=== PATIENT | female | born 1965 | race Caucasian/White ===

== ENCOUNTER 2022-12-18 06:01 | Inpatient (IN) | payer BC, SELFPAY ==
[2022-12-18] VITALS (7 sets, daily range): BP systolic 123–155; BP diastolic 55–79; PULSE 72–84; RESP 15–18; TEMP 36.9–37.5; O2SAT 96–100; BMI 25.1
--- NOTE | ~2022-12-18 | CT_ITS ---
EXAMINATION: CT abdomen pelvis w con DATE: 12/18/2022 08:17 INDICATION: Generalized abdominal pain TECHNIQUE: Computed tomography (CT) of the abdomen and pelvis was performed with 100 mL Omnipaque-350 intravenous contrast. Automated exposure control and iterative reconstruction technique were employe d. The dose-length product was 398.72 mGy-cm. COMPARISON: None FINDINGS: Mild bibasilar atelectasis. Heart size is normal. No pericardial or pleural effusion. Small sliding-t ype hiatal hernia. Liver, gallbladder, spleen and bilateral adrenal glands are normal. There is mild dilation of the main pancreatic duct at the body of the pancreas where it measures 3.8 mm in maximal diameter. The pancreas otherwise normal. No evident masses, stones or peripancreatic stranding. Air-f luid level within a 4 cm duodenal diverticulum situated posterior to the second portion of the duoden um. Developmental variant horseshoe kidney with fusion across the midline of the lower poles of the k idneys. There appears to be some urothelial enhancement at the bilateral renal collecting systems and ureters which could be seen with ascending urinary tract infection. Mild diffuse bladder wall thicke tu with smooth surface. Uterus and bilateral adnexa are unremarkable. Moderate scattered diverticul osis with descending and sigmoid colon predominance without adjacent from trace stranding to suggest acute appendicitis. Appendix is normal. No bowel obstruction. Small fat-containing umbilical and left inguinal hernias. No free intraperitoneal gas or fluid. No pathologically enlarged abdominal or pelv ic lymphadenopathy. Mild S-shaped scoliosis of the lumbar and lower thoracic spine with mild spondylo sis. IMPRESSION: 1. Developmental variant horseshoe kidney with urothelial enhancement of the bilateral renal collecti ng systems and ureters as well as mild wall thickening of the bladder which could be seen with cystit is and ascending urinary tract infection. Correlate with urinalysis. 2. Mild dilation of the main pancreatic duct at the body of the otherwise normal-appearing pancreas w hich is of indeterminate etiology or significance. Reviewed, dictated and finalized at location A. IMPRESSION: 1. Developmental variant horseshoe kidney with urothelial enhancement of the bi lateral renal collecting systems and ureters as well as mild wall thickening of the bladder which could be seen with cystitis and ascending urinary tract infe ction. Correlate with urinalysis. 2. Mild dilation of the main pancreatic duct at the body of the otherwise isma l-appearing pancreas which is of indeterminate etiology or significance.
[2022-12-18 06:39] LABS: Appearance Urine Turbid (Clear); Color Urine Yellow (Yellow); Glucose Urine UA 3+ mg/dL (Negative); Ketones Urine 2+ mg/dL (Negative); Protein Urine 2+ mg/dL (Negative); Specific Grav Ur 1.017 (1.001-1.035); pH Urine 5.5 (5.0-9.0)
[2022-12-18 06:40] LABS: Bacteria Urine 4+ /hpf; Bilirubin Urine Negative (Negative); Blood Urine 3+ (Negative); Leukocyte Esterase Ur 2+ LEU/UL (Negative); Nitrate Urine Positive (Negative); RBC Urine 51-100 /hpf (0-2); Squamous Epithelial Cell Urine None seen /hpf (Few); Urobilinogen Urine 0.2 mg/dL (<2.0); WBC Urine >100 /hpf
[2022-12-18 06:43] LABS: Add Urine Microscopic? YES
[2022-12-18 06:44] LABS: Alanine Aminotransferase 18 U/L (6-35); Albumin Level 4.7 g/dL (3.5-5.1); Alkaline Phosphatase 80 U/L (38-126); Anion Gap 9 mmol/L (8-16); Aspartate Amino Transferase 22 U/L (14-36); Bilirubin,Total 1.9 mg/dL (0.2-1.3); Blood Urea Nitrogen 18 mg/dL (7-17); Calcium 9.7 mg/dL (8.4-10.2); Carbon Dioxide 30 mmol/L (22-30); Chloride 100 mmol/L (98-107); Estimated CRCL calculation 74 ml/min; Estimated Glomerular Filt Rate > 60; Glucose 221 mg/dL (65-110); Lipase 38 U/L (23-300); Potassium 4.4 mmol/L (3.4-5.0); Sodium 139 mmol/L (137-145)
[2022-12-18 06:50] LABS: Hematocrit 37.7 % (37.0-47.0); Hemoglobin 12.6 g/dL (12.0-15.0); Mean Corpuscular HGB Conc 33.4 g/dl (32-36); Mean Corpuscular Volume 101.6 fl (80-100); Mean Platelet Volume 9.9 fl (7.4-10.4); Platelet Count Result 260 k/mm3 (150-375); Red Blood Count 3.71 M/mm3 (4.2-5.4); Red Cell Distribution Width 12.2 % (11.5-14.5); White Blood Count 17.8 K/mm3 (4.5-10.0)
[2022-12-18 07:22] LABS: Band Neutrophils Percent 5 % (0-6); Eosinophils Absolute Manual 0.17 K/mm3 (0.02-0.5); Eosinophils Percent Manual 1 % (0-4); Lymphocytes Absolute Manual 1.24 K/mm3 (1.1-4.5); Monocytes Absolute Manual 0.89 K/mm3 (0.1-0.90); Monocytes Percent Manual 5 % (3-9); Neutrophils Absolute Manual 15.48 K/mm3 (1.7-7.2); Neutrophils Percent Manual 82 % (46-73); Platelet Estimate Adequate (Adequate); Schistocytes None Seen (NORMAL); Total Cells Counted 100
--- NOTE | 2022-12-18 07:28 | ED.ABDPAIN ---
HPI - Abdominal Pain General Chief Complaint: Abdominal Pain Stated Complaint: Adominal pain, blockage in bladder and vag area Time Seen by Provider: 12/18/22 07:28 Source: patient and family Mode of arrival: ambulatory Limitations: no limitations History of Present Illness HPI narrative: 57 years old white female came to the emergency room by private car complaining of pressure kind of pain across lower abdomen bilaterally going for a month or 2. Associated with nausea and intermittent vomiting. Patient reported if sustained up for long hours or urinating feels like something has fallen out does not know from the vagina or the rectum. She try to push that something back when she is urinating or defecating Related Data Home Medications Medication Instructions Recorded Confirmed insulin aspart U-100 100 unit/mL subcut 12/18/22 (3 mL) subcutaneous pen (Novolog FlexPen U-100 Insulin aspart) insulin detemir U-100 100 unit/mL unit subcut 12/18/22 (3 mL) subcutaneous pen (Levemir FlexPen) Allergies Allergy/AdvReac Type Severity Reaction Status Date / Time No Known Allergies Allergy Verified 12/18/22 08:00 Review of Systems Review of Systems: All systems reviewed & are unremarkable except as noted in HPI and below PMFSH Family History Family History Father Family history of lung cancer, Onset Age: 65 Patient's father is Social History Social History Smoking status: Never smoker Exam Narrative: General appearance: Well-developed, well-nourished Skin: Normal color Head: Normocephalic, nontraumatic Eyes: Clear conjunctiva ENT: Oropharynx normal, ears normal, nose normal Neck: Supple, nontender Chest and respiratory: Airway patent, no respiratory distress, no accessory muscle use Heart: Regular rate/rhythm Abdomen: Soft, diffuse tenderness lower abdomen, no guarding or rebound no organomegaly, quiet bowel sounds Vascular: Normal peripheral pulses, normal capillary refill. Musculoskeletal: Normal range of motion, nontender back Neurologic: Alert and oriented ?3, SALES SUPPORT CONSULTANT is normal as tested, no gross motor deficit Course Reevaluation(s) Reevaluation #1: Patient still not feeling well, nauseated and vomiting twice in the ED. Date: 12/18/22 Time: 11:50 Vital Signs Vital signs: Vital Signs Temperature 37.0 C 12/18/22 06:10 Pulse Rate 84 12/18/22 06:10 Respiratory Rate 15 12/18/22 06:10 Blood Pressure 130/55 L 12/18/22 06:10 Pulse Oximetry 100 12/18/22 06:10 Oxygen Delivery Room Air 12/18/22 06:10 Temperature 37.0 C 12/18/22 06:10 Pulse Rate 72 12/18/22 10:41 Respiratory Rate 18 12/18/22 10:41 Blood Pressure 155/64 H 12/18/22 10:41 Pulse Oximetry 96 12/18/22 10:41 Oxygen Delivery Room Air 12/18/22 06:10 MDM - Abdominal Pain MDM Narrative Medical decision making narrative: Patient presents with the above complaint Physical examination showed diffuse tenderness across lower abdomen, vaginal exam and rectal exam showed no prolapse. Differential diagnosis include urinary tract infection, uterine prolapse, rectal prolapse, colitis, constipation. Work-up today include CBC, CMP, lipase, urine analysis, CT abdomen pelvis with IV contrast showed WBC of 11.8 with, blood
[2022-12-18] MEDS: ONDANSETRON INJ 4 MG/2 ML VIAL IV PUSH (08:01)
[2022-12-18] MEDS: SODIUM CHLORIDE 0.9% IV 1,000 ML 999 ML IV CONT (08:01)
[2022-12-18] MEDS: HYDROmorphone HCL INJ (*CRX) 1 MG/ML SYR 0.5 MG IV PUSH (08:02)
[2022-12-18] MEDS: ONDANSETRON INJ 4 MG/2 ML VIAL 8 MG IV PUSH (10:55)
[2022-12-18] MEDS: SODIUM CHLORIDE 0.9% IV 1,000 ML 125 ML IV CONT ×2 (11:51→22:53)
[2022-12-18] MEDS: ACETAMINOPHEN 325 MG TABLET 650 MG PO ×2 (13:53→20:34)
--- NOTE | 2022-12-18 13:56 | PC.NURSE ---
This patient, Jesusita Quevedo, was admitted to [facility] Surg Room 314-01 at 1330. Patient/family oriented to hospital policies and general routines including ID bracelet, bed and alarms, visiting hours, pain management, procedures, bathroom and other care routines, personal items, smoking policy, room service/diet, and visiting hours. Information on how to activate the Rapid Response Team has been discussed. Patient/Family are encouraged to report perceived risks to care and to ask questions if they do not understand what they are told or what they should do.
--- NOTE | 2022-12-18 15:19 | PM.IMHP ---
H&P: HPI History of Present Illness Date/Time: 12/18/22 15:19 Chief Complaint: Lower Abdominal Pain Narrative: 57 y/o F w/PMH of DM requiring insulin use presents here with lower abdominal pain and sensation of protruding tissue suspected to be from vagina. Patient presents here with lower abdominal pain for the past 1-2 months, initially patient believed pain was due to recurrent protrusion of tissue from her vaginal area. Patient reports that protrusion occurs with BMs, urination, and long periods of standing. Occurring daily. Abnormality requires patient to manually press prolapse back inside. Describes it as firm, like a baby that is . Patient has been experiencing difficulty with defecation due to this, reports laxative use to induce/ease BM. Last BM today, described as small and hard. Patient denies fever, dysuria, frequency, foul odor, blood in her urine, or flank pain. Now experiencing N/V x1 day. Review of Systems Review of Systems: All systems reviewed & are unremarkable except as noted in HPI and below PMFSH Past Medical History Medical History (Updated 12/19/22 @ 00:14 by Jamila Lew APRN) Diabetes mellitus type 2 in nonobese Ectopic Surgical History Surgical History (Updated 12/19/22 @ 00:12 by Jamila Lew APRN) History of salpingostomy Family History Family History (Updated 12/18/22 @ 13:58 by Shani Franks LPN) Father Family history of lung cancer, Onset Age: 65 Patient's father is Mother Alzheimer disease Social History Social History (Updated 12/18/22 @ 15:41 by Jamila Lew APRN) Social History: Currently lives at home with . 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 Spiritual care concerns: No Meds Home Medications and Allergies Home Medications Medication Instructions Recorded Confirmed Type insulin aspart U-100 100 unit/mL See Rx Instructions .Route .COMPLEX 12/18/22 12/18/22 History (3 mL) subcutaneous pen (Novolog FlexPen U-100 Insulin aspart) insulin detemir U-100 100 unit/mL 26 unit subcut DAILY 12/18/22 12/18/22 History (3 mL) subcutaneous pen (Levemir FlexPen) Allergies Allergy/AdvReac Type Severity Reaction Status Date / Time No Known Allergies Allergy Verified 12/18/22 08:00 Vital Signs Vital Signs - 24 hr 12/18/22 06:10 12/18/22 07:40 12/18/22 10:41 Temperature 98.6 F Pulse Rate 84 77 72 Respiratory Rate 15 18 18 Blood Pressure 130/55 L 148/69 H 155/64 H Pulse Oximetry 100 96 96 Oxygen Delivery Room Air 12/18/22 11:33 12/18/22 11:34 12/18/22 13:49 Temperature 98.4 F Pulse Rate 78 Respiratory Rate 18 Blood Pressure 123/79 132/56 L Pulse Oximetry 97 99 96 Oxygen Delivery Exam Const: General: comfortable and no acute distress HENMT: Mouth: Yes moist mucous membranes Eyes: General: appearance normal, both eyes and all related structures Sclera: sclerae normal Pupils: Equal, round and reactive pupils present EOM: EOMs intact bilaterally Resp: Effort & Inspection: normal respiratory effort Auscultation: clear to auscultation bilaterally Cardio: Rate: regular rate Rhythm: regular rhythm GI: GI Palp: Yes Soft to palpation Auscultation: normal bowel sounds Other: non-tender : Other: tissue protruding from vagina, cylindrica
[2022-12-18 17:12] LABS: Glucose Point of Care 125 mg/dl (65-105)
--- NOTE | 2022-12-18 18:12 | PC.NURSE ---
On 12/18/22, the MEDIA CONSULTANT, Shani Franks, provided care and completed [employer] documentation on this patient. I have reviewed the MEDIA CONSULTANT's documentation and agree with the findings.
[2022-12-18 18:17] LABS: Hemoglobin A1C 6.4 % (<5.7)
[2022-12-18 20:32] LABS: Glucose Point of Care 211 mg/dl (65-105)
[2022-12-18] MEDS: INSULIN ASPART (*BKC) 100 UNITS/ML SUB-Q (20:32)
--- NOTE | 2022-12-19 02:56 | PC.NURSE ---
I reviewed Angie Gaytan's (license pending) charting and agree with all entries for 12-18-22/12-19-22.
[2022-12-19 05:35] VITALS: BP 111/43; PULSE 69; RESP 18; TEMP 36.8; O2SAT 96
--- NOTE | 2022-12-19 07:03 | PM.IMPN ---
Progress Note: A&P Assessment and Plan (1) Pyelonephritis: Code(s): N12 - Tubulo-interstitial nephritis, not specified as acute or chronic Status: Acute Assessment and Plan: Lower abdominal pain for 1-2 months, now with N/V x1 day. No urinary symptoms reported. -UA showed tubrid appearance, 2+ protein, 3+ glucose, 2+ ketones, 3+ blood, 2+ leuk esterase, >100 WBC, 4+ bacteria -UC pending -CT Abd Pelvis Impression 1. 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 Correlate with urinalysis. 2. Mild dilation of the main pancreatic duct at the body of the otherwise normal-appearing pancreas which is of indeterminate etiology or significance. -Blood culture - pending, r/o sepsis -abx initiated in ED - given Ceftriaxone 1G, continued Q24H -TYL PRN for pain/fever -Zofran PRN for nausea, patient endorsed mild nausea with atb administration -rehydration with NS 75 ml/hr (2) Diabetes mellitus type 2 in nonobese: Code(s): E11.9 - Type 2 diabetes mellitus without complications Status: Acute Assessment and Plan: Currently on sliding scale Novolog and Levemir 26 U daily. Levemir last filled in 07/2022. -no A1C on file, ordered and pending -hypoglycemia protocol in place -Moderate Dose Novolog Sliding Scale ordered - TIDWM, HS -hold home Novolog, continue Levemir 26 U Daily -glucose monitoring ACHS (3) Uterine prolapse: Code(s): N81.4 - Uterovaginal prolapse, unspecified Status: Acute Assessment and Plan: Physical assessment revealed smooth tissue with opening, presumed to be os. -GEOLOGICAL SAMPLE TESTER consulted -Fiber supplementation to ease straining -Docusate w/senna ordered Plan Chronic Conditions/Problems - See above, no additional. Diet: Diabetic Consistent Carb DVT Prophylaxis: SCDs, Lovenox 40 Code Status: Full Code Antibiotics: Rocephin Subjective Date/time seen: 12/19/22 07:03 Interval history: HPI obtained from chart, 57 y/o F w/PMH of DM requiring insulin use presents here with lower abdominal pain and sensation of protruding tissue suspected to be from vagina. Patient presents here with lower abdominal pain for the past 1-2 months, initially patient believed pain was due to recurrent protrusion of tissue from her vaginal area. Patient reports that protrusion occurs with BMs, urination, and long periods of standing. Occurring daily. Abnormality requires patient to manually press prolapse back inside. Describes it as firm, like a baby that is . Patient has been experiencing difficulty with defecation due to this, reports laxative use to induce/ease BM. Last BM today, described as small and hard. Patient denies fever, dysuria, frequency, foul odor, blood in her urine, or flank pain. Now experiencing N/V x1 day. 12/19: Patient is seen today resting in bed. No acute events overnight. She is awaiting gang miner consult. I spoke with her about the plan for continued IV antibiotics and IV fluids for her pyelonephritis. We are waiting urine cultures. Today she is not having nausea but she is still having some left lower flank pain. She denies dysuria or frequency. She is able to void spontaneously despite prolapse. Review of Systems Review of Systems: All systems reviewed & are unremarkable except as noted in HPI and below Exam Narrative: General: well appearing, well developed, well nourished, appears stated age. HEENT: normocephalic, atraumatic. Mucous membranes moist. EOMI, PERRLA, bilateral sclera anicteric, no conjunctival injection. Neck supple without JVD, lymphadenopathy, or bruit. Respiratory: clear to auscultation bilaterally. No rales/rhonic/wheezes. Cardiovascular: Regular rate and rhythm, normal S1-S2 upon auscultation. No murmurs, rubs, or clicks. PMI is
[2022-12-19 07:41] LABS: Glucose Point of Care 158 mg/dl (65-105)
[2022-12-19] MEDS: PSYLLIUM POWDER PACKET 1 PACKET PO (08:52)
[2022-12-19] MEDS: ENOXAPARIN 40 MG/0.4 ML SYRINGE SUB-Q (08:52)
[2022-12-19] MEDS: INSULIN GLARGINE (*BKC) 100 UNITS/ML 26 UNITS SUB-Q (08:52)
[2022-12-19 11:29] LABS: Glucose Point of Care 138 mg/dl (65-105)
[2022-12-19 11:30] VITALS: BMI 25.1
[2022-12-19] MEDS: SODIUM CHLORIDE 0.9% IV 1,000 ML 125 ML IV CONT (12:00)
[2022-12-19] MEDS: ONDANSETRON INJ 4 MG/2 ML VIAL IV PUSH (12:08)
--- NOTE | 2022-12-19 13:11 | WPDCN ---
Assessment and Plan Assessment and plan (1) Uterine prolapse: Code(s): N81.4 - Uterovaginal prolapse, unspecified Status: Acute Assessment and Plan: 57-year-old female who presented to the emergency room with abdominal/ pelvic pressure and visible bulge Patient noted to have pelvic organ prolapse Patient has complete procidentia on exam, patient has prolapse inhibits her bladder and bowel movements Patient requires splinting to evacuate her bladder Suspect prolapse attributed to current episode of pyelonephritis Pelvic organ prolapse reviewed with patient at length Discussed management options with patient including pelvic floor physical therapy, vaginal pessaries, surgery Patient to considering surgery Recommend patient follow up outpatient for further evaluation and scheduling of potential surgery Patient will need updated annual exam and Pap smear prior to surgery Will also refer to Dr. Prakash for co management (2) Pyelonephritis: Code(s): N12 - Tubulo-interstitial nephritis, not specified as acute or chronic Status: Acute Assessment and Plan: patient admitted with pain and pressure Urinalysis positive for acute UTI Patient's exam suggestive of pyelonephritis Management per Internal Medicine Patient currently receiving antibiotics severity of pelvic organ prolapse is inhibiting complete emptying her bladder, likely contributed to infection Will plan for management of pelvic organ prolapse outpatient (3) Diabetes mellitus type 2 in nonobese: Code(s): E11.9 - Type 2 diabetes mellitus without complications Status: Acute Assessment and Plan: management per Medicine team [facility] Data of Consult Date/Time: 12/19/22 13:11 Requesting Physician: Yadiel Ferrer MD Primary Care Provider: Anthony Wasserman, Consult Narrative Reason for consult: Pelvic organ prolapse Narrative: Jesusita Quevedo is a 57 year old female who presented to the emergency room with complaint of abdominal / pelvic pressure and concerns for pelvic organ prolapse. We were consulted for management of pelvic organ prolapse. Patient states she has noticed a visible bulge from her vagina for the last 6-8 months. Patient has had some pressure sensations due to this. Patient states her prolapse causes difficulty emptying her bladder and her bowels. Patient reports that she needs to splint in order to empty her bladder and her bowels. Patient has had 3 children vaginally. She denies any chronic cough for chronic constipation. Patient is menopausal and denies any vaginal bleeding. Review of Systems Review of Systems: All systems reviewed & are unremarkable except as noted in HPI and below PMFSH Past Medical History Medical History (Updated 12/19/22 @ 00:14 by Jamila Lew APRN) Diabetes mellitus type 2 in nonobese Ectopic Surgical History Surgical History (Updated 12/19/22 @ 00:12 by Jamila Lew APRN) History of salpingostomy Family History Family History (Updated 12/18/22 @ 13:58 by Shani Franks LPN) Father Family history of lung cancer, Onset Age: 65 Patient's father is Mother Alzheimer disease Social History Social History (Updated 12/18/22 @ 15:41 by Jamila Lew APRN) Social History: Currently lives at home with . 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 Smoking status: Never smoker Second hand tobacco smoke exposure: No Alcohol intake: never Substance use: never Substance use type: does not use Lack of Transportation: No Lack of Food: Never True Current Housing: I Have Housing Concerned About Future Housing: No Difficulty Paying Gas/Electric Bills: No Difficulty Paying for Meds: No Currently Unemployed: No Education: High School Diploma/GED Difficulty w/ Childcare or Family Care: No Living arrangements: with family Occupation/Education: occupati
[2022-12-19 13:59] LABS: Basophils Percent Auto 0.4 % (0.2-1.2); Eosinophils Percent Auto 0.4 % (0-4.4); Hematocrit 33.9 % (37.0-47.0); Immature Granulocyte Absolute 0.02 K/mm3 (0.00-0.031); Immature Granulocyte Percent A 0.2 % (0-0.5); Lymphocytes Absolute Auto 1.19 K/mm3 (0.9-3.2); Lymphocytes Percent Auto 14.4 % (18.3-44.2); Mean Corpuscular HGB Conc 32.4 g/dl (32-36); Mean Corpuscular Hemoglobin 33.4 pg (26-34); Mean Platelet Volume 10.2 fl (7.4-10.4); Monocytes Absolute Auto 0.7 K/mm3 (0.1-0.6); Neutrophils Absolute Auto 6.4 K/mm3 (1.3-6.7); Neutrophils Percent Auto 76.6 % (45.5-73.1); Platelet Count Result 199 k/mm3 (150-375); Red Blood Count 3.29 M/mm3 (4.2-5.4); Red Cell Distribution Width 12.1 % (11.5-14.5); White Blood Count 8.3 K/mm3 (4.5-10.0)
[2022-12-19 14:00] VITALS: BP 124/52; PULSE 64; RESP 18; TEMP 37.8; O2SAT 95
[2022-12-19] MEDS: ACETAMINOPHEN 325 MG TABLET 650 MG PO (14:06)
[2022-12-19 14:10] LABS: Alanine Aminotransferase 17 U/L (6-35); Albumin Level 4.2 g/dL (3.5-5.1); Alkaline Phosphatase 72 U/L (38-126); Anion Gap 5 mmol/L (8-16); Aspartate Amino Transferase 21 U/L (14-36); Bilirubin,Total 0.7 mg/dL (0.2-1.3); Blood Urea Nitrogen 16 mg/dL (7-17); Calcium 9.1 mg/dL (8.4-10.2); Carbon Dioxide 33 mmol/L (22-30); Chloride 101 mmol/L (98-107); Estimated CRCL calculation 74 ml/min; Estimated Glomerular Filt Rate > 60; Glucose 159 mg/dL (65-110); Potassium 3.9 mmol/L (3.4-5.0); Sodium 139 mmol/L (137-145)
--- NOTE | 2022-12-19 16:12 | WPDURCON ---
Assessment and Plan Assessment and plan (1) Uterine prolapse: Code(s): N81.4 - Uterovaginal prolapse, unspecified Status: Acute Assessment and Plan: The patient appears to be a great candidate for a sacral colpopexy by Dr. Prakash. Will refer her to the office for outpatient workup for the surgery and consultation. She understands that there is no emergent risk of the prolapse but it can contribute to chronic UTI's and pelvic discomfort. (2) Pyelonephritis: Code(s): N12 - Tubulo-interstitial nephritis, not specified as acute or chronic Status: Acute Assessment and Plan: Continue Ceftriaxone, tailor antibiotics to culture sensitivity. Urology Consult Note HPI Date Seen: 12/19/22 Time Seen: 12:55 Requesting Physician: Yadiel Ferrer MD Primary Care Provider: Anthony Wasserman, Consult Narrative Reason for consult: Prolapse, Horseshoe Kidneys/Pyelonephritis Narrative: Jesusita Quevedo is a 57 year old female who presented to the ER on 12/18/22 for lower back pain that radiates to the pelvis and vaginal area. This began 1-2 months ago and was accompanied by nausea and one episode of vomiting. She notes a new vaginal prolapse about 6-8 months ago that has worsened and she now has to push it back in the vaginal canal when urinating or deficating. She denies dysuria, hematuria, frequency, urgency, stress incontinence and urge incontinence. She does note cloudy urine and straining to urinate. She has a WBC of 17.8, creatinine of 0.60 and a UA that is suggestive of a UTI. Her urine and blood cultures are pending. She remains on Ceftriaxone at this time. CT scan upon admission of the abdomen and pelvis shows ?Developmental variant horseshoe kidney with urothelial enhancement of the bilateral renal collecting systems and ureters as well as mild wall thickening of the bladder which could be seen with cystitis and ascending urinary tract infection. Correlate with urinalysis. She also notes having known about her horseshoe kidney's as a child and has never had any trouble with them or chronic UTI's. This is only her 2nd UTI this year. She is febrile at this time. She has not had a hysterectomy. Review of Systems Cardiovascular: Cardiovascular: Denies chest pain Respiratory: Respiratory: Reports no additional respiratory complaints Gastrointestinal: Gastrointestinal: Reports abdominal pain, Denies diarrhea, Reports nausea and Reports vomiting Genitourinary: Genitourinary: Denies hematuria, Denies nocturia, Denies dysuria, Reports pelvic pain, Reports prolapse symptoms, Denies urinary incontinence, Reports urinary hesitancy and Denies urinary urgency PMFSH Past Medical History Medical History Diabetes mellitus type 2 in nonobese Ectopic Surgical History Surgical History History of salpingostomy Family History Family History Father Family history of lung cancer, Onset Age: 65 Patient's father is Mother Alzheimer disease Social History Social History Social History: Currently lives at home with . 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 Smoking status: Never smoker Second hand tobacco smoke exposure: No Alcohol intake: never Substance use: never Substance use type: does not use Lack of Transportation: No Lack of Food: Never True Current Housing: I Have Housing Concerned About Future Housing: No Difficulty Paying Gas/Electric Bills: No Difficulty Paying for Meds: No Currently Unemployed: No Education: High School Diploma/GED Difficulty w/ Childcare or Family Care: No Living arrangements: with family Occupation/Education: occupation Additional occupation/education comments: [employer]
[2022-12-19 16:41] LABS: Glucose Point of Care 180 mg/dl (65-105)
[2022-12-19 21:35] LABS: Glucose Point of Care 200 mg/dl (65-105)
[2022-12-19 22:00] VITALS: BP 122/47; PULSE 59; RESP 16; TEMP 37.1; O2SAT 98
[2022-12-20] MEDS: SODIUM CHLORIDE 0.9% IV 1,000 ML 75 ML IV CONT ×2 (05:19→23:32)
--- NOTE | 2022-12-20 05:47 | PC.NURSE ---
This nurse reviewed Angie Gaytan's (license pending) cahrting and agrees with all entries made for 12-19-22 and 12-20-22.
[2022-12-20 05:55] VITALS: BP 128/64; PULSE 58; RESP 12; TEMP 36.5; O2SAT 98
[2022-12-20 06:22] LABS: Basophils Percent Auto 0.4 % (0.2-1.2); Eosinophils Percent Auto 0.4 % (0-4.4); Hematocrit 32.1 % (37.0-47.0); Hemoglobin 10.7 g/dL (12.0-15.0); Immature Granulocyte Absolute 0.02 K/mm3 (0.00-0.031); Immature Granulocyte Percent A 0.4 % (0-0.5); Lymphocytes Absolute Auto 1.16 K/mm3 (0.9-3.2); Lymphocytes Percent Auto 20.3 % (18.3-44.2); Mean Corpuscular HGB Conc 33.3 g/dl (32-36); Mean Corpuscular Hemoglobin 34.1 pg (26-34); Mean Corpuscular Volume 102.2 fl (80-100); Mean Platelet Volume 9.9 fl (7.4-10.4); Monocytes Absolute Auto 0.7 K/mm3 (0.1-0.6); Monocytes Percent Auto 11.4 % (2.6-8.5); Neutrophils Absolute Auto 3.8 K/mm3 (1.3-6.7); Neutrophils Percent Auto 67.1 % (45.5-73.1); Platelet Count Result 189 k/mm3 (150-375); Red Blood Count 3.14 M/mm3 (4.2-5.4); Red Cell Distribution Width 11.9 % (11.5-14.5); White Blood Count 5.7 K/mm3 (4.5-10.0)
[2022-12-20 06:48] LABS: Anion Gap 4 mmol/L (8-16); Blood Urea Nitrogen 11 mg/dL (7-17); Calcium 8.9 mg/dL (8.4-10.2); Carbon Dioxide 32 mmol/L (22-30); Chloride 104 mmol/L (98-107); Cholesterol 205 mg/dL (0-200); Estimated CRCL calculation 87 ml/min; Estimated Glomerular Filt Rate > 60; Glucose 161 mg/dL (65-110); HDL Direct 43 mg/dL; Potassium 3.8 mmol/L (3.4-5.0); Sodium 140 mmol/L (137-145); Triglycerides 164 mg/dL (<150)
[2022-12-20 06:58] LABS: LDL Cholesterol Direct 101 mg/dL
[2022-12-20 07:47] LABS: Glucose Point of Care 159 mg/dl (65-105)
[2022-12-20 07:55] LABS: Hemoglobin A1C 6.5 % (<5.7)
--- NOTE | 2022-12-20 08:11 | PM.IMPN ---
Progress Note: A&P Assessment and Plan (1) Pyelonephritis: Code(s): N12 - Tubulo-interstitial nephritis, not specified as acute or chronic Status: Acute Assessment and Plan: Lower abdominal pain for 1-2 months, now with N/V x1 day. No urinary symptoms reported. -UA showed tubrid appearance, 2+ protein, 3+ glucose, 2+ ketones, 3+ blood, 2+ leuk esterase, >100 WBC, 4+ bacteria -UC pending -CT Abd Pelvis Impression 1. 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 Correlate with urinalysis. 2. Mild dilation of the main pancreatic duct at the body of the otherwise normal-appearing pancreas which is of indeterminate etiology or significance. -Blood culture - pending, r/o sepsis -abx initiated in ED - given Ceftriaxone 1G, continued Q24H -TYL PRN for pain/fever -Zofran PRN for nausea, patient endorsed mild nausea with atb administration -rehydration with NS 75 ml/hr (2) Diabetes mellitus type 2 in nonobese: Code(s): E11.9 - Type 2 diabetes mellitus without complications Status: Acute Assessment and Plan: Currently on sliding scale Novolog and Levemir 26 U daily. Levemir last filled in 07/2022. -A1c 6.5% -hypoglycemia protocol in place -Moderate Dose Novolog Sliding Scale ordered - TIDWM, HS -hold home Novolog, continue Levemir 26 U Daily -glucose monitoring ACHS (3) Uterine prolapse: Code(s): N81.4 - Uterovaginal prolapse, unspecified Status: Acute Assessment and Plan: Physical assessment revealed smooth tissue with opening, presumed to be os. -SUPERINTENDENT RENTING MANAGING consulted as well as Urology -Dr Prakash is willing to take on as an outpatient for sacral colpopexy -Fiber supplementation to ease straining -Docusate w/senna ordered Plan Chronic Conditions/Problems - See above, no additional. Diet: Diabetic Consistent Carb DVT Prophylaxis: SCDs, Lovenox 40 Code Status: Full Code Antibiotics: Rocephin Subjective Date/time seen: 12/20/22 08:11 Interval history: HPI obtained from chart, 57 y/o F w/PMH of DM requiring insulin use presents here with lower abdominal pain and sensation of protruding tissue suspected to be from vagina. Patient presents here with lower abdominal pain for the past 1-2 months, initially patient believed pain was due to recurrent protrusion of tissue from her vaginal area. Patient reports that protrusion occurs with BMs, urination, and long periods of standing. Occurring daily. Abnormality requires patient to manually press prolapse back inside. Describes it as firm, like a baby that is . Patient has been experiencing difficulty with defecation due to this, reports laxative use to induce/ease BM. Last BM today, described as small and hard. Patient denies fever, dysuria, frequency, foul odor, blood in her urine, or flank pain. Now experiencing N/V x1 day. 12/19: Patient is seen today resting in bed. No acute events overnight. She is awaiting turn supervisor consult. I spoke with her about the plan for continued IV antibiotics and IV fluids for her pyelonephritis. We are waiting urine cultures. Today she is not having nausea but she is still having some left lower flank pain. She denies dysuria or frequency. She is able to void spontaneously despite prolapse. 12/20: Continues to improve clinically with IV antibiotics and IV fluids. Still awaiting urine cultures. She has not had any nausea but still having some pain. Plan will be to do another day of IV antibiotics and then likely discharge tomorrow with oral antibiotics through 12/25. The patient mentioned that she thought urology wanted her to have an ultrasound done prior to her discharge. Do not see any mention of such imaging in the notes. She did have a CT abdomen and pelvis done so I am wondering if this i
[2022-12-20] MEDS: ENOXAPARIN 40 MG/0.4 ML SYRINGE SUB-Q (09:16)
[2022-12-20] MEDS: PSYLLIUM POWDER PACKET 1 PACKET PO (09:16)
[2022-12-20] MEDS: INSULIN GLARGINE (*BKC) 100 UNITS/ML 26 UNITS SUB-Q (09:18)
[2022-12-20] MEDS: ONDANSETRON INJ 4 MG/2 ML VIAL IV PUSH (11:20)
[2022-12-20 11:34] LABS: Glucose Point of Care 248 mg/dl (65-105)
[2022-12-20] MEDS: INSULIN ASPART (*BKC) 100 UNITS/ML SUB-Q (12:34)
[2022-12-20 14:00] VITALS: BP 119/62; PULSE 64; RESP 16; TEMP 37; O2SAT 98
[2022-12-20 17:06] LABS: Glucose Point of Care 75 mg/dl (65-105)
[2022-12-20 21:42] LABS: Glucose Point of Care 158 mg/dl (65-105)
[2022-12-20 22:00] VITALS: BP 155/73; PULSE 64; RESP 16; TEMP 35.7; O2SAT 96
[2022-12-21 05:56] LABS: Basophils Percent Auto 0.4 % (0.2-1.2); Eosinophils Absolute Auto 0.1 K/mm3 (0-0.3); Eosinophils Percent Auto 1.1 % (0-4.4); Hematocrit 31.3 % (37.0-47.0); Hemoglobin 10.5 g/dL (12.0-15.0); Immature Granulocyte Absolute 0.01 K/mm3 (0.00-0.031); Immature Granulocyte Percent A 0.2 % (0-0.5); Lymphocytes Absolute Auto 1.29 K/mm3 (0.9-3.2); Lymphocytes Percent Auto 28.2 % (18.3-44.2); Mean Corpuscular HGB Conc 33.5 g/dl (32-36); Mean Corpuscular Hemoglobin 34.1 pg (26-34); Mean Corpuscular Volume 101.6 fl (80-100); Mean Platelet Volume 10.1 fl (7.4-10.4); Monocytes Absolute Auto 0.7 K/mm3 (0.1-0.6); Monocytes Percent Auto 15.3 % (2.6-8.5); Neutrophils Absolute Auto 2.5 K/mm3 (1.3-6.7); Neutrophils Percent Auto 54.8 % (45.5-73.1); Platelet Count Result 206 k/mm3 (150-375); Red Blood Count 3.08 M/mm3 (4.2-5.4); Red Cell Distribution Width 11.9 % (11.5-14.5); White Blood Count 4.6 K/mm3 (4.5-10.0)
[2022-12-21 06:00] VITALS: BP 129/65; PULSE 57; RESP 14; TEMP 35.9; O2SAT 99
[2022-12-21 06:15] LABS: Anion Gap 5 mmol/L (8-16); Blood Urea Nitrogen 9 mg/dL (7-17); Carbon Dioxide 32 mmol/L (22-30); Chloride 104 mmol/L (98-107); Estimated CRCL calculation 87 ml/min; Estimated Glomerular Filt Rate > 60; Glucose 125 mg/dL (65-110); Magnesium 1.9 mg/dL (1.6-2.3); Potassium 3.5 mmol/L (3.4-5.0); Sodium 141 mmol/L (137-145)
[2022-12-21] MEDS: PSYLLIUM POWDER PACKET 1 PACKET PO (08:21)
[2022-12-21] MEDS: INSULIN GLARGINE (*BKC) 100 UNITS/ML 26 UNITS SUB-Q (08:21)
[2022-12-21] MEDS: ENOXAPARIN 40 MG/0.4 ML SYRINGE SUB-Q (08:21)
[2022-12-21 08:22] LABS: Glucose Point of Care 136 mg/dl (65-105)
--- NOTE | 2022-12-21 08:30 | PM.IMPN ---
Progress Note: A&P Assessment and Plan (1) Pyelonephritis: Code(s): N12 - Tubulo-interstitial nephritis, not specified as acute or chronic Status: Acute Assessment and Plan: Lower abdominal pain for 1-2 months, now with N/V x1 day. No urinary symptoms reported. -UA showed tubrid appearance, 2+ protein, 3+ glucose, 2+ ketones, 3+ blood, 2+ leuk esterase, >100 WBC, 4+ bacteria -UC pending -CT Abd Pelvis Impression 1. 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 Correlate with urinalysis. 2. Mild dilation of the main pancreatic duct at the body of the otherwise normal-appearing pancreas which is of indeterminate etiology or significance. -Blood culture - NGTD -Urine cultures with 2 different gram negative bacilli isolated. Await sensitivity. Ecoli and Klebsiella-both with oral susceptibilites. Will d/c with Macrobid. -abx initiated in ED - given Ceftriaxone 1G, continued Q24H -TYL PRN for pain/fever -Zofran PRN for nausea, patient endorsed mild nausea with abx administration -rehydration with NS 75 ml/hr (2) Diabetes mellitus type 2 in nonobese: Code(s): E11.9 - Type 2 diabetes mellitus without complications Status: Acute Assessment and Plan: Currently on sliding scale Novolog and Levemir 26 U daily. Levemir last filled in 07/2022. -A1c 6.5% -hypoglycemia protocol in place -Moderate Dose Novolog Sliding Scale ordered - TIDWM, HS -hold home Novolog, continue Levemir 26 U Daily -glucose monitoring ACHS (3) Uterine prolapse: Code(s): N81.4 - Uterovaginal prolapse, unspecified Status: Acute Assessment and Plan: Physical assessment revealed smooth tissue with opening, presumed to be os. -BOBBIN HAULER consulted as well as Urology -Dr Prakash is willing to take on as an outpatient for sacral colpopexy -Fiber supplementation to ease straining -Docusate w/senna ordered Plan Chronic Conditions/Problems - See above, no additional. Diet: Diabetic Consistent Carb DVT Prophylaxis: SCDs, Lovenox 40 Code Status: Full Code Antibiotics: Rocephin Subjective Date/time seen: 12/21/22 08:30 Interval history: HPI obtained from chart, 57 y/o F w/PMH of DM requiring insulin use presents here with lower abdominal pain and sensation of protruding tissue suspected to be from vagina. Patient presents here with lower abdominal pain for the past 1-2 months, initially patient believed pain was due to recurrent protrusion of tissue from her vaginal area. Patient reports that protrusion occurs with BMs, urination, and long periods of standing. Occurring daily. Abnormality requires patient to manually press prolapse back inside. Describes it as firm, like a baby that is . Patient has been experiencing difficulty with defecation due to this, reports laxative use to induce/ease BM. Last BM today, described as small and hard. Patient denies fever, dysuria, frequency, foul odor, blood in her urine, or flank pain. Now experiencing N/V x1 day. 12/19: Patient is seen today resting in bed. No acute events overnight. She is awaiting sales and service change leader consult. I spoke with her about the plan for continued IV antibiotics and IV fluids for her pyelonephritis. We are waiting urine cultures. Today she is not having nausea but she is still having some left lower flank pain. She denies dysuria or frequency. She is able to void spontaneously despite prolapse. 12/20: Continues to improve clinically with IV antibiotics and IV fluids. Still awaiting urine cultures. She has not had any nausea but still having some pain. Plan will be to do another day of IV antibiotics and then likely discharge tomorrow with oral antibiotics through 12/25. The patient mentioned that she thought urology wanted her to have an ultrasound done p
[2022-12-21] MEDS: ONDANSETRON INJ 4 MG/2 ML VIAL IV PUSH (11:05)
[2022-12-21 12:01] LABS: Glucose Point of Care 160 mg/dl (65-105)
--- NOTE | 2022-12-21 13:50 | PM.DS ---
DS: Admitting Diagnosis Discharge Date 12/21/22 Admitting Diagnosis Prolapsed uterus DS: Discharge Diagnosis Discharge Diagnosis (1) Pyelonephritis: Code(s): N12 - Tubulo-interstitial nephritis, not specified as acute or chronic Status: Acute Assessment and Plan: Lower abdominal pain for 1-2 months, now with N/V x1 day. No urinary symptoms reported. -UA showed tubrid appearance, 2+ protein, 3+ glucose, 2+ ketones, 3+ blood, 2+ leuk esterase, >100 WBC, 4+ bacteria -UC pending -CT Abd Pelvis Impression 1. 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 Correlate with urinalysis. 2. Mild dilation of the main pancreatic duct at the body of the otherwise normal-appearing pancreas which is of indeterminate etiology or significance. -Blood culture - NGTD -Urine cultures with 2 different gram negative bacilli isolated. Await sensitivity. Ecoli and Klebsiella-both with oral susceptibilites. Will d/c with Macrobid. -abx initiated in ED - given Ceftriaxone 1G, continued Q24H -TYL PRN for pain/fever -Zofran PRN for nausea, patient endorsed mild nausea with abx administration -rehydration with NS 75 ml/hr (2) Diabetes mellitus type 2 in nonobese: Code(s): E11.9 - Type 2 diabetes mellitus without complications Status: Acute Assessment and Plan: Currently on sliding scale Novolog and Levemir 26 U daily. Levemir last filled in 07/2022. -A1c 6.5% -hypoglycemia protocol in place -Moderate Dose Novolog Sliding Scale ordered - TIDWM, HS -hold home Novolog, continue Levemir 26 U Daily -glucose monitoring ACHS (3) Uterine prolapse: Code(s): N81.4 - Uterovaginal prolapse, unspecified Status: Acute Assessment and Plan: Physical assessment revealed smooth tissue with opening, presumed to be os. -MANAGER SOLUTION consulted as well as Urology -Dr Prakash is willing to take on as an outpatient for sacral colpopexy -Fiber supplementation to ease straining -Docusate w/senna ordered Plan Chronic Conditions/Problems - See above, no additional. Diet: Diabetic Consistent Carb DVT Prophylaxis: SCDs, Lovenox 40 Code Status: Full Code Antibiotics: Rocephin DS: Summary Hospital Course Hospital Course: 57 y/o F w/PMH of DM requiring insulin use presents here with lower abdominal pain and sensation of protruding tissue suspected to be from vagina. Patient presents here with lower abdominal pain for the past 1-2 months, initially patient believed pain was due to recurrent protrusion of tissue from her vaginal area. Patient reports that protrusion occurs with BMs, urination, and long periods of standing. Occurring daily. Abnormality requires patient to manually press prolapse back inside. Describes it as firm, like a baby that is . Patient has been experiencing difficulty with defecation due to this, reports laxative use to induce/ease BM. Last BM today, described as small and hard. Patient denies fever, dysuria, frequency, foul odor, blood in her urine, or flank pain. Now experiencing N/V x1 day. 12/19:? Patient is seen today resting in bed.? No acute events overnight.? She is awaiting retail loan officer consult.? I spoke with her about the plan for continued IV antibiotics and IV fluids for her pyelonephritis.? We are waiting urine cultures.? Today she is not having nausea but she is still having some left lower flank pain.? She denies dysuria or frequency. She is able to void spontaneously despite prolapse. 12/20:? Continues to improve clinically with IV antibiotics and IV fluids.? Still awaiting urine cultures.? She has not had any nausea but still having some pain.? Plan will be to do another day of IV antibiotics and then likely discharge tomorrow with oral antibiotics through 12/25.? The patient mentioned that she thought u
== END 2022-12-21 15:30 | disposition home or self-care (01) | DRG 690 ==
LOC: ANHED 08:45 → ANH3MEDSUR 12:40
PROVIDERS: Student in an Organized Health Care Education/Training Program; Admitting Provider Internal Medicine; Emergency Provider Emergency Medicine; PCP Internal Medicine; Visit Provider Nurse Practitioner Acute Care
DX: N10 Acute pyelonephritis (principal); N81.3 Complete uterovaginal prolapse; E11.9 Type 2 diabetes mellitus without complications; Z79.4 Long term (current) use of insulin; B96.20 Unspecified Escherichia coli [E. coli] as the cause of diseases classified elsewhere; B96.1 Klebsiella pneumoniae [K. pneumoniae] as the cause of diseases classified elsewhere
CPT/HCPCS: 36415; 74177; 80048; 80053; 80061; 81001; 82948; 83036; 83690; 83735; 85025; 87040; 87077; 87086; 87186; 96361; 96365; 96372; 96375; 96376; 99285; A9270; G0378; J0696; J1170; J1650; J1815; J2405; J7030; Q9967

== ENCOUNTER 2023-01-08 08:32 | Outpatient (CLI) | payer BC, SELFPAY ==
--- NOTE | ~2023-01-08 | US_ITS ---
EXAMINATION: US transvaginal DATE: 01/08/2023 13:23 INDICATION: Female genital prolapse, unspecified TECHNIQUE: Multiple endovaginal sonographic images of the pelvis were obtained. COMPARISON: CT, 12/18/2022 FINDINGS: The uterus measures 9.2 x 4.0 x 5.3 cm. The endometrial complex measures 6 mm. The ovaries are not visualized however no adnexal abnormality is seen. There is no free fluid in the pelvis. IMPRESSION: 1. Unremarkable pelvic ultrasound. Reviewed, dictated and finalized at location F.
== END 2023-01-08 08:33 ==
LOC: MICIMG 01-09 08:32
PROVIDERS: PCP Nurse Practitioner Adult Health; Visit Provider Nurse Practitioner Adult Health
DX: N81.9 Female genital prolapse, unspecified (principal)
CPT/HCPCS: 76830

== ENCOUNTER 2023-04-16 11:55 | Outpatient (CLI) | payer BC, SELFPAY ==
--- NOTE | 2023-04-16 12:43 | ECG_ITS ---
Measurements Intervals [place] Rate: 68 P: 57 NV: 114 QRS: -72 QRSD: 142 T: 34 QT: 434 QTc: 463 Interpretive Statements SINUS RHYTHM WITH SHORT NV INTERVAL FREQUENT ATRIAL PREMATURE COMPLEXES RIGHT BUNDLE BRANCH BLOCK LEFT ANTERIOR FASCICULAR BLOCK BASELINE ARTIFACT- I, II, III, AVR, AVL, AVF ABNORMAL ECG NO PREVIOUS ECG AVAILABLE FOR COMPARISON Electronically Signed On 04-16-2023 13:02:26 KNOWLEDGE MANAGEMENT ADVISOR by Jeremy Fenton D.O.
[2023-04-16 13:09] LABS: Basophils Percent Auto 0.4 % (0.2-1.2); Eosinophils Absolute Auto 0.1 K/mm3 (0-0.3); Eosinophils Percent Auto 1.7 % (0-4.4); Hematocrit 36.5 % (37.0-47.0); Hemoglobin 11.9 g/dL (12.0-15.0); Immature Granulocyte Absolute 0.04 K/mm3 (0.00-0.031); Immature Granulocyte Percent A 0.5 % (0-0.5); Lymphocytes Absolute Auto 2.23 K/mm3 (0.9-3.2); Lymphocytes Percent Auto 27.6 % (18.3-44.2); Mean Corpuscular HGB Conc 32.6 g/dl (32-36); Mean Corpuscular Volume 101.1 fl (80-100); Mean Platelet Volume 9.4 fl (7.4-10.4); Monocytes Absolute Auto 0.5 K/mm3 (0.1-0.6); Monocytes Percent Auto 6.4 % (2.6-8.5); Neutrophils Absolute Auto 5.1 K/mm3 (1.3-6.7); Neutrophils Percent Auto 63.4 % (45.5-73.1); Platelet Count Result 300 k/mm3 (150-375); Red Blood Count 3.61 M/mm3 (4.2-5.4); Red Cell Distribution Width 12.3 % (11.5-14.5); White Blood Count 8.1 K/mm3 (4.5-10.0)
[2023-04-16 13:13] LABS: INR 0.9; Partial Thromboplastin Time 27.5 SECONDS (22.3-36.8); Prothrombin Time 12.4 Seconds (11.1-14.7)
[2023-04-16 13:34] LABS: Alanine Aminotransferase 20 U/L (6-35); Albumin Level 4.6 g/dL (3.5-5.1); Alkaline Phosphatase 63 U/L (38-126); Anion Gap 8 mmol/L (8-16); Aspartate Amino Transferase 23 U/L (14-36); Bilirubin,Total 0.6 mg/dL (0.2-1.3); Blood Urea Nitrogen 15 mg/dL (7-17); Carbon Dioxide 32 mmol/L (22-30); Chloride 100 mmol/L (98-107); Estimated Glomerular Filt Rate > 60; Glucose 102 mg/dL (65-110); Potassium 4.4 mmol/L (3.4-5.0); Sodium 140 mmol/L (137-145)
== END 2023-04-16 11:56 | disposition home or self-care (01) ==
LOC: ANHSURGERY 12:01
PROVIDERS: PCP Internal Medicine; Visit Provider Urology
DX: Z01.818 Encounter for other preprocedural examination (principal); N81.4 Uterovaginal prolapse, unspecified; E11.9 Type 2 diabetes mellitus without complications
CPT/HCPCS: 36415; 80053; 85025; 85610; 85730; 86850; 86900; 86901; 93005

== ENCOUNTER 2023-04-27 00:40 | Day surgery (SDC) | payer BC, SELFPAY ==
[2023-04-16 12:06] VITALS: BMI 25.0
--- NOTE | 2023-04-16 12:25 | PC.NURSE ---
Report to the Outpatient Waiting Room, entrance under the green pavilion located off [facility], at time _1000 on date __04/27/23 . Planned Procedure Time: __1200 . Time changes happen often and if your time is changed the preop area will call you the afternoon before. - You and your visitor will be asked to self-screen and do not enter if you have any COVID symptoms. - A mask is optional within the hospital at this time. Patients may have clear liquids (water, carbonated beverages, clear teas, apple juice) until 3 hours prior to surgery ( 9:00 AM)with a maximum of 20 ounces. - No food from midnight until time of surgery - Infants may have breast milk until 4 hours before surgery, infant formula 6 hours prior to surgery. - Children will be allowed to drink immediately following surgery. If applicable, please bring a bottle or sippy cup to assist with drinking. Juice, water, soda, and popsicles are readily available. For infants on formula, please bring formula the day of surgery. Pacifiers are allowed. Take the following medications with a SIP of water the morning of surgery: ____NONE DO NOT STOP ANY OF YOUR OTHER PRESCRIPTION MEDICATIONS PRIOR TO SURGERY ?EXCEPT THE FOLLOWING Medications to discontinue per physician NONE Please no make-up, nail dominican, hairspray, perfume, deodorant, or body powder the day of surgery. No jewelry (including any body piercings) or valuables the day of surgery, leave them at home. Please take a shower or bath the night before, or the morning of, surgery with an antibacterial soap. Wear comfortable, loose fitting clothing. Children are encouraged to wear pajamas. - Jewelry must be removed prior to entering the operating room. Rings and piercings that are not removed may be cut off. - The hospital will not accept responsibility for valuables. - Please leave all valuables, including medications, at home the day of surgery. If you are going home after surgery, a licensed long haul truck driver must drive you home. - NO public transportation without another adult if you receive anesthesia. - We recommend that an adult stay with you for 24 hours following discharge. - We also recommend that you do not drive, make important decision, drink alcoholic beverages, or take any drugs that were not prescribed by your health care provider for at least 24 hours after your discharge time. Follow any additional instructions given to you from your surgeon. If you or anyone in your household have experienced Covid symptoms in the past week, please notify your surgeon or the nurse liaison at the phone number below for possible testing. VERBAL AND WRITTEN instructions given to __PATIENT and asked if any additional questions and then verbalized understanding. Patient advised to call surgeon office or pre surgery nurse liaison [phone] if any additional questions.
[2023-04-16 12:43] VITALS: BP 128/62; PULSE 73; RESP 18; TEMP 36.7; O2SAT 97
--- NOTE | 2023-04-23 16:43 | PM.IMHP ---
H&P: HPI History of Present Illness Date/Time: 04/23/23 16:43 Chief Complaint: Uterine prolapse Narrative: 57 multiparous patient admitted for robotic supracervical hysterectomy bilateral salpingo-oophorectomy and sacral colpopexy secondary to prolapse. Risks and benefits have been great detail. She had questions answered and asked to proceed she did received the [facility] handout hysterectomy as well as the [facility] Past Medical History Medical History Diabetes mellitus type 2 in nonobese Ectopic Surgical History Surgical History History of salpingostomy Family History Family History Father Family history of lung cancer, Onset Age: 65 Patient's father is Mother Alzheimer disease Social History Social History Social History: Currently lives at home with . 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 Spiritual care concerns: No Meds Home Medications and Allergies Home Medications Medication Instructions Recorded Confirmed Type insulin aspart U-100 100 unit/mL See Rx Instructions .Route .COMPLEX 12/18/22 04/16/23 History (3 mL) subcutaneous pen (Novolog FlexPen U-100 Insulin aspart) insulin detemir U-100 100 unit/mL 26 unit subcut HS 12/18/22 04/16/23 History (3 mL) subcutaneous pen (Levemir FlexPen) cephalexin 250 mg capsule 250 mg PO HS 04/16/23 04/16/23 History Allergies Allergy/AdvReac Type Severity Reaction Status Date / Time No Known Allergies Allergy Verified 04/16/23 12:07 Exam Const: General: cooperative, healthy appearing and comfortable Nutritional Appearance: average body habitus Orientation/consciousness: oriented to person, oriented to place and oriented to time HENMT: Head: normal to inspection Resp: Effort & Inspection: normal respiratory effort Cardio: Rate: regular rate Rhythm: regular rhythm Heart sounds: S1 normal heart sound present and S2 normal heart sound present GI: Inspection: normal to inspection : External Female Exam: normal external appearance (3rd-4th degree prolapse present) Speculum Exam - Cervix: Cervical os closed Bimanual exam- vagina & uterus: soft Bimanual Exam- Adnexa, other: normal adnexae Assessment and Plan Assessment and plan (1) Uterine prolapse: Code(s): N81.4 - Uterovaginal prolapse, unspecified Status: Acute Plan Robotic supracervical hysterectomy and bilateral salpingo-oophorectomy. Dr. Prakash will proceed with robotic sacral colpopexy and procedure is needed
--- NOTE | 2023-04-25 14:49 | PM.IMHP ---
H&P: HPI History of Present Illness Date/Time: 04/25/23 14:49 Chief Complaint: Pelvic organ prolapse and stress incontinence Narrative: this is a woman with pelvic organ prolapse as well as stress incontinence. She has been using a pessary. This is not satisfactory for her. She had like a surgical procedure. Review of Systems Review of Systems: All systems reviewed & are unremarkable except as noted in HPI and below PMFSH Past Medical History Medical History Diabetes mellitus type 2 in nonobese Ectopic Surgical History Surgical History History of salpingostomy Family History Family History Father Family history of lung cancer, Onset Age: 65 Patient's father is Mother Alzheimer disease Social History Social History Social History: Currently lives at home with . 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 Spiritual care concerns: No Meds Home Medications and Allergies Home Medications Medication Instructions Recorded Confirmed Type insulin aspart U-100 100 unit/mL See Rx Instructions .Route .COMPLEX 12/18/22 04/16/23 History (3 mL) subcutaneous pen (Novolog FlexPen U-100 Insulin aspart) insulin detemir U-100 100 unit/mL 26 unit subcut HS 12/18/22 04/16/23 History (3 mL) subcutaneous pen (Levemir FlexPen) cephalexin 250 mg capsule 250 mg PO HS 04/16/23 04/16/23 History Allergies Allergy/AdvReac Type Severity Reaction Status Date / Time No Known Allergies Allergy Verified 04/16/23 12:07 Exam Narrative: No acute distress normal breathing urethral hypermobility documented cystocele, rectocele, loss of apical support Assessment and Plan Assessment and plan (1) LEON (stress urinary incontinence, female): Code(s): N39.3 - Stress incontinence (female) (male) Status: Acute Plan robotic colpopexy and urethral sling. Understands risks of bleeding, infection, damage surrounding organs, damage to the urinary tract, vaginal mesh extrusion, urinary tract mesh erosion, obstructive voiding requiring secondary procedure, hip and leg pain, dyspareunia, recurrent or persistent incontinence, recurrent or persistent prolapse. Agrees to proceed
[2023-04-27] VITALS (12 sets, daily range): BP systolic 101–155; BP diastolic 40–64; PULSE 43–80; RESP 13–20; TEMP 35.9–36.7; O2SAT 93–100
--- NOTE | 2023-04-27 07:10 | WPDHPUPDATE1 ---
History and Physical Update Update Date/Time: 04/27/23 07:10 History and Physical has been reviewed, including an updated exam of the patient. There are NO changes in the patient's condition. Risks, benefits, and alternatives have been discussed and questions answered. Patient agrees to proceed with procedure.
[2023-04-27] MEDS: LACTATED RINGERS 1,000 ML 30 ML IV CONT ×3 (10:30→15:47)
[2023-04-27 10:48] LABS: Glucose Point of Care 109 mg/dl (65-105)
--- NOTE | 2023-04-27 10:51 | WPDANESEPPF ---
Anes - Initial Pre Proc Eval Procedure: Operation Date: 04/27/23 12:00 Proposed Procedures p Robotic Sacrocolpopexy - Kaleb Prakash MD s Urethral Sling - Kaleb Prakash MD s Robotic Assisted Supracervical Hysterectomy with Bilateral Salpingo-oophorectomy - Mynor Irvin MD Date/Time: 04/27/23 10:51 Surgeon: Kaleb Prakash MD Pre Op Diagnosis: Complete Uterovaginal prolapse Patient Data Age: 57 Gender: F Height: 1.63 m Weight: 66.1 kg Last Vital Signs Temp 98.1 F 04/16/23 12:43 Pulse 73 04/16/23 12:43 Resp 18 04/16/23 12:43 BP 128/62 04/16/23 12:43 Pulse Ox 97 04/16/23 12:43 O2 Del Method Room Air 04/16/23 12:43 Allergies Allergy/AdvReac Type Severity Reaction Status Date / Time No Known Allergies Allergy Verified 04/16/23 12:07 Home Medications Medication Instructions Recorded Confirmed Type insulin aspart U-100 100 unit/mL See Rx Instructions .Route .COMPLEX 12/18/22 04/16/23 History (3 mL) subcutaneous pen (Novolog FlexPen U-100 Insulin aspart) insulin detemir U-100 100 unit/mL 26 unit subcut HS 12/18/22 04/16/23 History (3 mL) subcutaneous pen (Levemir FlexPen) cephalexin 250 mg capsule 250 mg PO HS 04/16/23 04/16/23 History Laboratory Tests 04/27/23 10:45 POC Capillary Glucose 109 H mg/dl (65-105) Patient hx anesthesia problems: post op nausea/vomiting Family hx anesthesia problems: none Results Review: All pre-operative results and documents have been reviewed as part of the pre-operative evaluation. [facility] Past Medical History Medical History Diabetes mellitus type 2 in nonobese Ectopic Surgical History Surgical History History of salpingostomy Family History Family History Father Family history of lung cancer, Onset Age: 65 Patient's father is Mother Alzheimer disease Social History Social History Social History: Currently lives at home with . 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 Informed Consent: The patient's anesthetic plan and its attendant risks and benefits were discussed with the patient/family/POA. Questions were solicited and answers provided to the satisfaction of the patient/family/POA.
[2023-04-27] MEDS: SCOPOLAMINE 1 MG PATCH 1 PATCH TRANSDERM (11:00)
[2023-04-27] MEDS: metroNIDAZOLE 500 MG/ISO 100ML 500 MG/100 ML BAG 100 MG IVPB ×2 (11:57→21:18)
[2023-04-27] MEDS: ceFAZolin 2 GM/D5W 50 ML 2 GM/50 ML BAG IVPB (12:11)
[2023-04-27] MEDS: BUPIVACAINE/EPINEPHRINE 0.5% 30 ML VIAL INFILTRATE (12:38)
--- NOTE | 2023-04-27 13:00 | P.OP_ITS ---
Procedure Note - Detailed Date of Procedure 04/27/23 Pre-op Diagnosis Complete Uterovaginal prolapse Post-op Diagnosis Same Procedure Performed Robotic supracervical hysterectomy bilateral salpingo-oophorectomy Surgeon Mynor Irvin MD Anesthesia General Indications some 57-year-old patient with complete uterine prolapse admitted for the above- named procedure and sacral colpopexy sling Dr. Lezama Findings prolapsed uterus. Normal-appearing ovaries and tubes. Description of Procedure Patient's were prepped draped in the normal sterile fashion placed in dorsal lithotomy position. Under excellent general trach anesthesia weighted speculum placed in posterior fornix vagina anterior lip of the cervix grasped with single-tooth tenaculum the Macias's cannula inserted attached to the single-tooth to be used later for uterine ablation. The bladder was drained with 16 [place]guillan catheter and the weighted speculum was removed. Dr. Guan proceeded to dock please see his operative report for that. Attention was turned to the counselor at law. The left round ligament was grasped, burned, cut. Anteriorly a bladder flap was formed by sharply dissecting the peritoneum and reflecting the bladder away from cervix and uterus to the opposite round ligament was clamped, burned, cut. Next the infundibulopelvic structures on the left were skeletonized remove the left ovary and tube clamped, burned, cut and brought to the level of previously cut round ligament. In similar fashion, removing the right ovary and tube the infundibulopelvic structure was skeletonized clamping burning cutting and bringing this level previously cut round ligament. Cardinal broad ligaments were skeletonized clamped burned cut brought down the left side of the uterus until the uterine vessels could be seen these were clamped, burned, cut. In similar fashion the cardinal broad ligaments on the right were serially skeletonized clamping burning cutting and bringing this down to level uterine vessels these were individually clamped, burned, cut. Following this a close supracervical incision was made. This uterus ovaries and tubes were placed in an Endo-Catch and Dr. Lezama began his portion of the procedure at that point. Blood loss was 25cc all sponge, needle, and instrument counts were correct up to that point. There were no immediate complications Estimated Blood Loss 25 Drains No Packing No Pathology Yes Complications No immediate complications Condition Stable Disposition No change
--- NOTE | 2023-04-27 14:49 | W.PM.PROC2 ---
Procedure Note - Detailed Date of Procedure 04/27/23 Pre-op Diagnosis Complete Uterovaginal prolapse Stress incontinence Post-op Diagnosis Same Procedure Performed Robotic assisted laparoscopic sacral colpopexy Urethral sling Cystoscopy Surgeon Kaleb Prakash MD Settlement Processor fink Anesthesia General Indications A patient with uterine prolapse as well as stress incontinence. She desires surgical correction. She has been using a pessary. she is here for the above. She understands risks of bleeding, infection, diskitis, damage to surrounding organs, bowel injury, bowel obstruction, mesh related complications including exposure and extrusion, postoperative voiding dysfunction including incontinence and retention, need for ancillary procedures, dyspareunia, recurrence of prolapse, and other perioperative intraoperative postoperative complications. She agrees to proceed. Findings See below Description of Procedure She was correctly identified. Informed consent obtained. She from the operating room. She was given general anesthesia. She was given appropriate perioperative antibiotics. She was placed a low lithotomy position. Pressure points were padded. A time-out performed. I marked out the skin 3 fingerbreadths cephalad to the umbilicus. I anesthetized the skin. I incised the skin. I dissected down to the fascia. I grasped the fascia with Tatum clamps. I entered the fascia sharply in a Yañez type technique. I placed sutures for later fascial closure. I placed a midline trocar. I examined the abdomen. There is no sign of any injury. Under direct vision I placed 2 additional trocars in the right upper quadrant and 2 additional trocars the left upper quadrant. She was placed in steep Trendelenburg. The robot was docked. Her sound installation worker completed their portion of the procedure. Please see that operative report for details. I then sat at the console. The Sizer in the vagina created plane on the anterior and posterior vaginal wall. Of note there was some inflammation in the area due to long-term pessary usage. I took great care not to injure the vagina, bladder, or rectum. I introduced the mesh into the abdomen. I sewed the anterior leaflet of mesh on the anterior vaginal wall. I sewed the posterior leaflet of mesh on the posterior vaginal wall. This was done with several sutures of 2 0 [place]-Thomas. I reflected the colon laterally. I opened the posterior peritoneum over the sacral promontory. I carried this into the cul-de-sac. I freed up the edges for later retroperitonealization. I located the anterior longitudinal ligament the sacrum. I cleaned off all fatty tissues. I then tensioned my mesh appropriately. I did a vaginal exam the bedside. I assured prolapse reduction without undue tension. I then sewed the proximal leaflet of mesh onto the anterior longitudinal ligament of the sacrum with 5 sutures of 2 0 [place]-Thomas. I then used a 2 0 Monocryl to completely and meticulously retroperitonealized all mesh. I allowed the colon to go back to its normal anatomic location. There is no sign of any impingement. The specimen was then removed. All ports removed. Fascia was tied down. Additional sutures were placed to fully close the fascia. skin was closed with Monocryl and surgical glue. She was repositioned and prepped for urethral sling. I marked out the inner thigh incisions. I anesthetized the skin and made the incisions. I then anesthetized the anterior vaginal wall at the mid urethra. I made a 1 cm incision. I dissected out laterally taking great care not to injure the refilled vaginal wall. I passed the helical trocars. I did this 1st on the left and then on the right. This was done from the thigh incision towards the vaginal incision. Sling was connected to the trocars and brought out the thigh incision. I tensioned the sling appropriately. I cut and the plastic sheaths. I closed the incision with 2 0 Vicryl. Of
[2023-04-27 15:09] LABS: Glucose Point of Care 184 mg/dl (65-105)
[2023-04-27] MEDS: ONDANSETRON INJ 4 MG/2 ML VIAL IV PUSH (15:19)
[2023-04-27] MEDS: fentaNYL CITRATE INJ (*CRX) 100 MCG/2 ML VIAL 25 MCG IV PUSH ×5 (15:42→16:12)
--- NOTE | 2023-04-27 15:43 | SUR.PHASEI ---
MD Martin at bedside to assess pt. EKG. No new orders at this time. If pt. still nauseous, RN can give 12.5mg Benadryl (repeat once if needed) per .
--- NOTE | 2023-04-27 16:50 | PC.NURSE ---
This patient, Jesusita Quevedo, was received from PACU on 04/27/23 at 1650. Patient/family oriented to unit policies and routines.
[2023-04-27] MEDS: KCL 20 MEQ/D5/0.45% SOD CHL 1,000 ML 100 ML IV CONT (17:32)
[2023-04-27] MEDS: HYDROcodone/acetaminophen (*CRX) 5-325 MG TABLET 1 TAB PO (17:34)
[2023-04-27 17:48] LABS: Glucose Point of Care 195 mg/dl (65-105)
[2023-04-27] MEDS: KCL 20 MEQ/0.45% NS 1,000 ML 100 ML IV CONT (18:36)
[2023-04-27] MEDS: ceFAZolin 1 GM/NS 50 ML 1 GM/50 ML BAG IVPB (20:45)
[2023-04-28 01:35] VITALS: BP 114/52; PULSE 62; RESP 16; TEMP 37.1; O2SAT 97
[2023-04-28] MEDS: HYDROcodone/acetaminophen (*CRX) 5-325 MG TABLET 1 TAB PO ×3 (01:40→11:55)
[2023-04-28] MEDS: metroNIDAZOLE 500 MG/ISO 100ML 500 MG/100 ML BAG 100 MG IVPB (04:36)
[2023-04-28 04:40] VITALS: BP 90/48; PULSE 62; RESP 16; TEMP 36.9; O2SAT 96
[2023-04-28] MEDS: ceFAZolin 1 GM/NS 50 ML 1 GM/50 ML BAG IVPB ×2 (05:38→13:25)
--- NOTE | 2023-04-28 06:51 | PM.GYNPNOP ---
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 OPERATOR - A/P Postoperative Procedures: Procedures Operation Date: 04/27/23 12:00 Actual Procedure Side Surgeon p Robotic Sacrocolpopexy Kaleb Prakash MD s Urethral Sling Kaleb Prakash MD s Robotic Assisted Supracervical Hysterectomy with Bilateral Salpingo-oophorectomy Bilateral Mynor Irvin MD Postoperative status: doing well Postoperative plan: routine post-op care, see orders, ambulate, advance diet, voiding trials and discharge Time Spent With Patient Time: Total time spent is greater than 50% in coordination of care (as documented) at patient's floor/unit and/or counseling patient: Time with patient: less than 15 minutes 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 OPERATOR- PN:Subj Post-Op Subjective Date/time seen: 04/28/23 06:51 Subjective: patient has no complaints, patient desires discharge, pain is well controlled and patient is tolerating oral intake Exam Const: General: cooperative, healthy appearing and comfortable Nutritional Appearance: average body habitus Orientation/consciousness: oriented to person, oriented to place and oriented to time HENMT: Head: normal to inspection Resp: Effort & Inspection: normal respiratory effort Cardio: Rate: regular rate Rhythm: regular rhythm Heart sounds: S1 normal heart sound present and S2 normal heart sound present GI: Inspection: normal to inspection and incision ( was were clean dry and intact) 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 OPERATOR - PN: Obj Data Vital Signs Vital Signs: Vital Signs - 24 hr 04/27/23 10:30 04/27/23 14:54 04/27/23 15:00 Temperature 98.1 F 96.6 F L Pulse Rate 80 63 53 L Respiratory Rate 16 18 14 Blood Pressure 138/61 123/58 L 122/55 L Pulse Oximetry 98 100 100 Oxygen Delivery Room Air Simple Face Mask Simple Face Mask Oxygen Flow Rate 10 10 04/27/23 15:15 04/27/23 15:30 04/27/23 15:45 Temperature Pulse Rate 47 L 45 L 43 L Respiratory Rate 13 19 14 Blood Pressure 131/50 L 130/51 L 155/49 H Pulse Oximetry 95 93 97 Oxygen Delivery Room Air Room Air Nasal Cannula Oxygen Flow Rate 2 04/27/23 16:00 04/27/23 16:15 04/27/23 16:30 Temperature Pulse Rate 60 51 L 68 Respiratory Rate 13 14 20 Blood Pressure 109/44 L 101/40 L 119/45 L Pulse Oximetry 99 99 100 Oxygen Delivery Nasal Cannula Nasal Cannula Nasal Cannula Oxygen Flow Rate 2 2 2 04/27/23 17:00 04/27/23 17:00 04/27/23 17:45 Temperature 98.0 F Pulse Rate 52 L Respiratory Rate 16 Blood Pressure 130/45 L Pulse Oximetry 100 100 100 Oxygen Delivery Nasal Cannula Nasal Cannula Oxygen Flow Rate 2 1 04/27/23 20:55 04/28/23 01:35 04/28/23 01:35 Temperature 98.0 F 98.8 F Pulse Rate 72 62 62 Respiratory Rate 16 16 16 Blood Pressure 140/64 114/52 L Pulse Oximetry 97 97 97 Oxygen Delivery Room Air Oxygen Flow Rate 04/28/23 04:40 04/28/23 04:40 Temperature 98.4 F Pulse Rate 62 62 Respiratory Rate 16 16 Blood Pressure 90/48 L Pulse Oximetry 96 96 Oxygen Delivery Room Air Oxygen Flow Rate Intake/Output Intake/Output: Intake & Output 04/25/23 04/26/23 04/27/23 04/28/23 23:59 23:59 23:59 23:59 Intake Total 1199 150 Output Total 60 Balance 1139 150 Meds/Results Medications: Active Medications Generic Name Dose Route Start Last Admin Trade Name Freq PRN Reason Stop Dose Admin Acetaminophen 650 mg 04/27/23 16:42 Acetaminophen 325 Mg Tablet PO Q4H PRN Mild Pain (1-3) or Fever Hydrocodone Bitart/Acetaminophen 1 tab 04/27/23 16:42 04/28/23 01:40 Hydrocodone/Acetaminophen (*Crx) 5-325 Mg Tablet PO 1 tab Q4H PRN Administration Pain Rated 4-5 Cephalexin HCl 500 mg 04/28/23 09:00 Cephalexin 500 Mg Capsule PO QID ASHU Dextrose 12.5 gm 04/27/23 16:42 Dextrose 50% 25 Gm/50 Ml Syringe IV PUSH PRN PRN Hypoglycemia Protocol Diphenhydramine HCl 25 mg 04/27/23 16:42 Diphenhydramine Hcl Inj 50 Mg/Ml Vial IV PUSH Q6H PRN Itching Docusate Sodium 100 mg 04/28/23 09:00 Docusate Sodium 100 Mg Cap
--- NOTE | 2023-04-28 06:52 | P.DS_ITS ---
DS: Admitting Diagnosis Discharge Date 04/28/2023 Admitting Diagnosis uterine prolapse/stress urinary continence DS: Discharge Diagnosis Discharge Diagnosis (1) LEON (stress urinary incontinence, female): Code(s): N39.3 - Stress incontinence (female) (male) Status: Acute (2) Uterine prolapse: Code(s): N81.4 - Uterovaginal prolapse, unspecified Status: Acute DS: Summary Hospital Course Reason for hospitalization: patient was admitted for robotic supracervical hysterectomy bilateral salpingo- oophorectomy sacral colpopexy and sling Hospital Course: hospital course unremarkable. She remained afebrile. She was up, voiding without difficulty, eating regular diet, ambulating, generally without complaints. Time Spent with Patient Time attestation: Total time spent providing and/or coordinating discharge services: Exam Const: General: cooperative, healthy appearing and comfortable Nutritional Appearance: average body habitus Orientation/consciousness: oriented to person, oriented to place and oriented to time HENMT: Head: normal to inspection Resp: Effort & Inspection: normal respiratory effort Cardio: Rate: regular rate Rhythm: regular rhythm Heart sounds: S1 normal heart sound present and S2 normal heart sound present GI: Inspection: normal to inspection and incision ( Wounds were clean dry and intact) DS: Data Data Completed and Pending Pending studies at discharge: Pending at discharge 04/27/23 12:39 Surgical [PTH] Routine Labs on day of discharge: Labs from last 24 hours 04/27/23 04/27/23 04/27/23 17:46 15:07 10:45 POC Capillary Glucose 195 H 184 H 109 H Discharge Plan Discharge Patient Disposition: Home, Self-Care Discharge Instructions: No lifting >20lb, exercise for 6 weeks No tub bath or pool for 2 weeks No intercourse 6 weeks Stand Alone Forms: General Discharge Instructions Follow-up/Referrals: Kaleb Prakash MD [Physician] - (6 weeks as scheduled) Discharge Medications: New docusate sodium [Colace] 100 mg capsule 100 mg PO BID Qty: 60 0RF hydrocodone-acetaminophen 5-325 mg tablet 1 tablet PO Q6H PRN (Reason: pain) Qty: 20 0RF Continued insulin aspart U-100 [Novolog FlexPen U-100 Insulin] 100 unit/mL (3 mL) insulin pen See Rx Instructions .ROUTE .COMPLEX Rx Instructions: starts at 6 units when blood glucose is 150 and every 50 points it goes up by 1 unit Levemir FlexPen 100 unit/mL (3 mL) insulin pen 26 unit SUBCUT HS cephalexin 250 mg capsule 250 mg PO HS
[2023-04-28 07:15] VITALS: BP 118/45; PULSE 55; RESP 16; TEMP 37.2; O2SAT 99
[2023-04-28] MEDS: DOCUSATE SODIUM 100 MG CAPSULE PO (07:52)
[2023-04-28] MEDS: ENOXAPARIN 30 MG/0.3 ML SYRINGE SUB-Q (07:53)
[2023-04-28 08:07] LABS: Glucose Point of Care 85 mg/dl (65-105)
--- NOTE | 2023-04-28 08:16 | WPDANESPN ---
Anes - Prog Note Post-Op Date/Time: 04/28/23 08:16 Cardiovascular status: normal Respiratory status: normal Airway patency: baseline Mental status: baseline Post-Op hydration status: normal Vital Signs: Last Vital Signs Temp 37.2 C 04/28/23 07:15 Pulse 55 L 04/28/23 07:15 Resp 16 04/28/23 07:15 BP 118/45 L 04/28/23 07:15 Pulse Ox 99 04/28/23 07:15 O2 Del Method Room Air 04/28/23 04:40 O2 Flow Rate 1 04/27/23 17:45 Pain Score (VAS): 3/10 I/O: Intake & Output 04/27/23 04/28/23 04/28/23 23:59 07:59 15:59 Intake Total 749 690 Output Total 60 1075 Balance 689 -385 04/27/23 04/27/23 04/27/23 10:45 15:07 17:46 POC Capillary Glucose 109 H 184 H 195 H 04/28/23 08:00 POC Capillary Glucose 85 Post-procedural complaints: nausea (Resolved as of this morning) Patient Feedback: Patient satisfied with anesthetic care.
[2023-04-28 13:34] LABS: Glucose Point of Care 175 mg/dl (65-105)
== END 2023-04-28 14:30 | disposition home or self-care (01) ==
LOC: ANHSURGERY 11:09 → ANHOB2 16:44
PROVIDERS: Obstetrics & Gynecology; PCP Internal Medicine; Visit Provider Urology
PROC: (CPT 57425; principal; 2023-04-27 12:00)
PROC: (CPT 57425; 2023-04-27 12:00)
PROC: 0UT94ZZ Resection of Uterus, Percutaneous Endoscopic Approach (ICD-10-PCS; CPT 57425; 2023-04-27 12:00)
DX: N81.4 Uterovaginal prolapse, unspecified (principal); N39.3 Stress incontinence (female) (male); N80.03 Adenomyosis of the uterus; E11.9 Type 2 diabetes mellitus without complications
CPT/HCPCS: 58542; 57425; 57288; S2900; 82948; 88307; 99199; A9270; C1771; C1781; J0690; J1100; J1170; J1596; J1650; J1836; J1885; J2250; J2405; J2704; J2710; J3010; J3480; J7030; J7120

== ENCOUNTER 2024-11-30 08:20 | Outpatient (CLI) | payer BC, SELFPAY ==
--- NOTE | ~2024-11-30 | MM_ITS ---
EXAMINATION: MM screening faisal BI w joe HISTORY: Screening mammogram TECHNIQUE: Craniocaudal and mediolateral oblique 3-D tomosynthesis images were obtained and synthetic 2-D images were generated. CAD analysis was submitted and interpreted. COMPARISON: None BREAST PARENCHYMAL COMPOSITION:Not Dense. There are scattered areas of fibroglandular density. FINDINGS: No suspicious mass, calcification, or architectural distortion are identified in either breast to suggest malignancy. There has been no suspicious interval change. IMPRESSION: No mammographic evidence of malignancy. Recommend routine screening mammography in one year. BI-RADS Category 1: Negative Reviewed, dictated and finalized at location .
--- OUTSIDE RECORDS SUMMARY | 2024-11-30 08:28 | XMS_ITS | Clinical Summary ---
Author Organization [facility] Address [address] [place] [address] Phone Care Team Providers Care Commercial Attache Name Role Phone Anthony Wasserman MD Primary Care Provider [phone] Dania Whitt NP Unavailable Allergies No known active allergies Medications Glucose Blood StripIndications :Diabetic ketoacidosis without coma associated with type 2 diabetes mellitus (HCC) Diagnosis: Diabetes type 2 Blood testing frequency: 4 times a day Before each meal and before going to bed at night 400 Strip 3 06/28/19 17 Active Blood Glucose Monitoring Suppl DeviceIndication s:Diabetic ketoacidosis without coma associated with type 2 diabetes mellitus (HCC) Before each meal and at HS. 1 Each 0 06/28/19 17 Active Lancets Misc Use as directed 400 Lancet 3 06/28/19 17 Active meloxicam (MOBIC) 15 MG TabletIndication s:Coccygeal pain Take 1 Tablet by mouth daily. 90 Tablet 09/11/19 22 Active Additional Information Patient not taking.Reported on 07/25/2022 Insulin Pen Needle (B-D ULTRAFINE III SHORT PEN) 31G X 8 MM Misc As instructed 100 Pen Needle 3 10/19/19 22 Active insulin aspart (NovoLOG FlexPen) 100 UNIT/ML Solution Pen-injector INJECT 6 UNITS SUBCUTANEOUSLY BEFORE MEALS. CORRECTIONAL FACTOR 1:50 IF > 150. UP TO 30 UNITS PER DAY 15 mL 02/28/20 23 Active insulin glargine (LANTUS, BASAGLAR) 100 UNIT/ML Solution Pen-injectorIndi cations:Type 2 diabetes mellitus with diabetic polyneuropathy, with long-term current use of insulin (HCC) 26 Units by Subcutaneous route nightly. 15 mL 05/08/19 24 Active Active Problems Problem Noted Date Diagnosed Date Type 2 diabetes mellitus wit h diabetic polyneuropathy, with long-term current use of insulin 06/27/2016 Hyperlipidemia 06/27/2016 DKA (diabetic ketoacidoses) 06/24/2016 Depression Diabetic peripheral neuropathy Resolved Problems Problem Noted Date Diagnosed Date Resolved Date Moderate malnutrition 06/09/20182018 Hyponatremia 06/24/2016 01/06/2017 Hypokalemia 06/24/2016 01/06/2017 CAP (community acquired pneumonia) 06/24/2016 01/06/2017 Encounters Date Type Department Care Team Description 11/16/2024 Patient Outreach [facility] [place] [address] [place] [address] Anthony Wasserman MD from Last 3 Months Immunizations Immunization Administration Dates Next Due Covid-19, Mrna, Lnp-s, PF, 1 00 mcg/0.5 mL Dose (Moderna) 08/29/2020,08/01/2020 Influenza Vaccine greater than 3 yrs 12/26/2016 Influenza Vaccine, MDCK,quadrivalent, pres free 02/06/2018 Influenza Vaccine, Quadrivalent, PF 01/02/2020,1 Influenza, Injectable, Mdck, quadrivalent,with Preservative 02/15/2019 Pneumococcal Vaccine Adult - 23 Valent 8 TDAP Vaccine 07/24/2014 Social History Tobacco Use Types Packs/Day Years Used Date Smoking Tobacco: Never Smokeless Tobacco: Never Tobacco Cessation:Counseling Given: Not Answered Alcohol Use Standard Drinks/Week Comments No 0 (1 standard drink = 0.6 oz pur e alcohol) PHQ-2 Answer Date Recorded Total Score - Questions 1-9 13 10/11 Comments No Sex and Gender Information Value Date Recorded Sex Assigned at Not on file Legal Sex Female 9:35 PM CDT Gender Identity Not on file Sexual Orientation Not on file Last Filed Vital Signs Vital Sign Reading Time Taken Comments Blood Pressure 120/70 07/25/2022 12:59 PM CDT Pulse 79 07/25/2022 12:59 PM CDT Temperature 36.4 C (97.5 F) 07/25/2022 12:59 PM CDT Respiratory Rate 18 07/25/2022 12:59 PM CDT Oxygen Saturation 97% 07/25/2022 12:59 PM CDT Inhaled Oxygen Concentration - - Weight 59.9 kg (132 lb) 07/25/2022 12:59 PM CDT Height 160 cm (5' 3) 07/25/2022 12:59 PM CDT Body Mass Index 23.38 07/25/2022 12:59 PM CDT Plan of Treatment Health Maintenance Due Date Last Done Comments Diabetes: Foot Exam 1965 Hepatitis C Virus (HCV) Screening 1965 Pap Smear 09/25/1984 Cervical Cancer Screening (CCS) 09/25/1993 HPV/Cotest 09/25/1993 Cologuard 09/25/2008 Colonoscopy 09/25/2008 Colorectal Cancer Screening 09/25/2008 Immunochemical Fecal Occult Blood 09/25/2008 Zoster Immunization (1 of 2) 09/25/2013 Diabetes: Eye Exam 04/03/2016 04/03/2015 Mammogram 07/04/2017 07/04/2016 Pneumococcal Immunization (50+ years) (2 of 2 - PCV) 06/08/2018 06/08/2017 Diabetes: Hemoglobin A1c 10/16/2021 022, 11/05/2020, 11/11/2017, Additional history exists Respiratory Syncytial Virus (RSV) Immunization (Adult) (1 - Risk 60-74 years 1-dose series) 2023 SARS-COV-2 Immunization ( season) 2023 04/25/2021, 08/29/2020, 08/01/2020 Diabetes: Nephropathy Screening 04/16/2024 04/16/2023, 12/18/2022, 11/05/2020, Additional history exists Td Immunization Every 10 Years (Adults With 1 Tdap) 07/24/2024 07/24/2014 Influenza Immunization (#1) 2024 09/2 04/2019, 02/15/2019, 02/06/2018, Additional history exists Pneumococcal Immunization Combined Discontinued 06/08/2017 Hepatitis B Immunization Aged Out No longer eligible based on patient's age to complete this topic Human Papillomavirus (HPV) Immunization Aged Out No longer eligible based on patient's age to complete this topic Meningococcal Immunization (ACWY) Aged Out No longer eligible based on patient's age to complete this topic Rotavirus Immunization Aged Out No lo nger eligible based on patient's age to complete this topic Procedures Procedure Name Priority Date/Time Associated Diagnosis Comments CMP (COMPREHENSIVE METABOLIC PANEL) 04/16/2023 12:00 AM DRY CELL TESTER HEMOGLOBIN A1C W/ ESTIMATED GLUCOSE Routine 04/18/2021 8:31 AM DRY CELL TESTER Type 2 diabetes mellitus with diabetic polyneuropathy, with long-term current use of insulin (HCC) TAMARA SCREENING BILATERAL DIGITAL W CAD Routine 07/04/2016 2:57 PM CDT Encounter for screening mammogram for breast cancer HM DILATED EYE EXAM Routine 04/03/2015 from Last 3 Months or Most Recently Relevant to Health Maintenance Results * CMP (COMPREHENSIVE METABOLIC PANEL) (04/16/2023 12:00 AM DRY CELL TESTER) 04/16/2023 us Provider Scan CHEMISTRY ORDERABLES Final Resul t SCAN * (ABNORMAL) HEMOGLOBIN A1C W/ ESTIMATED GLUCOSE (04/18/2021 8:31 AM DRY CELL TESTER) HGB-A1C 6.2(H) 4.0 - 6.0 % 04/18/2021 1:33 PM DRY CELL TESTER [facility] Est Average Glucose 131.2 mg/dL 04/18/2021 1:33 PM DRY CELL TESTER [facility] Blood Venipuncture / Unknown 04/18/2021 8:31 AM DRY CELL TESTER 04/18/2021 8:31 AM DRY CELL TESTER Narrative [facility] - 04/18/2021 1:33 PM DRY CELL TESTER HEMOGLOBIN A1C: DIABETIC PATIENTS: WELL-CONTROLLED: 6.2 - 7.0 INTERMEDIATE WELL-CONTROLLED: 7.0 - 9.0 POORLY-CONTROLLED: >9.0 us Anthony Wasserman MD CHEMISTRY ORDERABLES Carine zaragoza Result [facility] [address] [place] [address] * TAMARA SCREENING BILATERAL DIGITAL W CAD (07/04/2016 2:57 PM CDT) Anatomical Region Laterality Modality breast Bilateral Mammography 07/04/2016 2:38 PM CDT Narrative 07/05/2016 7:03 AM CDT - TAMARA SCREENING BILATERAL DIGITAL W CAD BILATERAL DIGITAL SCREENING MAMMOGRAM WITH CAD WITH MEDIOLATERAL OBLIQUE CRANIOCAUDAL: 07/04/2016 The study was acquired using digital technology and interpreted from soft copy. Current study was also evaluated with ICAD version 7.2. CLINICAL: New baseline screening. Patient has no complaints. No personal history of cancer. No family history of breast cancer. COMPARISONS: No prior exams were available for comparison. BREAST TISSUE:The tissue of both breasts is heterogeneously dense. This may lower the sensitivity of mammography. FINDINGS: There are benign scattered calcifications in both breasts. There is a mole marker on the left breast. No significant masses, calcifications, or other findings are seen in either breast. IMPRESSION: BI-RAD 2 BENIGN There is no mammographic evidence of malignancy. A 1 year screening mammogram is recommended. The patient has been or will be contacted. The patient will be entered into a reminder system with a target due date of 1 year for her next screening exam. Electronically signed by: Mirtha renee/leslie:07/04/2016 16:47:36 Food Services Director: Claudia Alonso(Bev), [facility] letter sent: Normal Exam Reading location: [facility] BI-RADS: 2 Benign Procedure Note Mirtha King MD - 07/05/2016 - TAMARA SCREENING BILATERAL DIGITAL W CAD BILATERAL DIGITAL SCREENING MAMMOGRAM WITH CAD WITH MEDIOLATERAL OBLIQUE CRANIOCAUDAL: 07/04/2016 The study was acquired using digital technology and interpreted from soft copy. Current study was also evaluated with ICAD version 7.2. CLINICAL: New baseline screening. Patient has no complaints. No personal history of cancer. No family history of breast cancer. COMPARISONS: No prior exams were available for comparison. BREAST TISSUE:The tissue of both breasts is heterogeneously dense. This may lower the sensitivity of mammography. FINDINGS: There are benign scattered calcifications in both breasts. There is a mole marker on the left breast. No significant masses, calcifications, or other findings are seen in either breast. IMPRESSION: BI-RAD 2 BENIGN There is no mammographic evidence of malignancy. A 1 year screening mammogram is recommended. The patient has been or will be contacted. The patient will be entered into a reminder system with a target due date of 1 year for her next screening exam. 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 PRE-ARREST: Use entire range of life support measures to stabilize the patient. * Full Code Date Activated Date Inactivated Comments 06/25/2016 1:59 AM 06/26/2016 2:50 PM CPR-Full Huang atment: FULL ARREST: Attempt Resuscitation/CPR wit intubation and mechanical ventilation. PRE-ARREST: Use entire range of life support measures to stabilize the patient. Care Teams Commercial Attache Relationship Specialty Start Date End Date Anthony Wasserman MD [address] [place] [address] PCP - General Internal Medicine 06/23/16 Dania Whitt NP [address] [facility] [address] [place] [address] Nurse Practitioner Urology 02/27/23
== END 2024-11-30 08:21 | disposition home or self-care (01) ==
LOC: ANHFOHIMG 08:21
PROVIDERS: PCP Family Medicine; Visit Provider Family Medicine
DX: Z12.31 Encounter for screening mammogram for malignant neoplasm of breast (principal)
CPT/HCPCS: 77063; 77067